=== PATIENT | male | born 1990 | race Asian ===

== ENCOUNTER 2020-06-01 07:21 | Outpatient (RCR) | payer MEDICARE, SELFPAY ==
[2020-06-01] MEDS: COVID-19 VACC, MRNA(PFIZER)/PF 30 MCG/0.3 ML SYRINGE IM (11:54)
[2020-06-22] MEDS: COVID-19 VACC, MRNA(PFIZER)/PF 30 MCG/0.3 ML SYRINGE IM (11:40)
== END 2020-07-19 23:59 ==
LOC: IMMUN 07:21
PROVIDERS: Visit Provider Family Medicine
DX: Z23 Encounter for immunization (principal)
CPT/HCPCS: 0001A; 0002A; 91300